=== PATIENT | female | born 1955 | race Caucasian/White ===

== ENCOUNTER 2018-01-30 08:55 | Outpatient (CLI) | payer MEDICARE ==
--- NOTE | 2018-01-31 09:30 | PET ---
PET SCAN WITH CT ATTENUATION CORRECTION: HISTORY: A 62-year-old female. Thyroid cancer. Enlarged neck lymph node. Lymph node swollen since November 12. COMPARISON: None. TECHNIQUE: PET scan with CT attenuation correction was performed from the base of the brain to the proximal thig h, following the intravenous administration of 11.09 millicuries of F18 fluorodeoxyglucose. FINDINGS: HEAD/NECK: There is a mildly enlarged left level II lymph node with a maximum SUV of 2.5, which is a t the upper limits of normal. There are no additional enlarged lymph nodes on the CT used for attenu ation correction. There are no abnormal areas of FDG localization. CHEST: No abnormal FDG localization. ABDOMEN/PELVIS: No abnormal FDG localization. OSSEOUS STRUCTURES: No abnormal FDG localization. IMPRESSION: No abnormal fluorodeoxyglucose localization. There is an enlarged left level II lymph node with the maximum standardized uptake value at the upper limits of normal. POS: SVEN
== END 2018-01-30 08:56 | disposition home or self-care (01) ==
LOC: PET 08:55
PROVIDERS: ATTEND Otolaryngology
DX: C73 Malignant neoplasm of thyroid gland (principal)
CPT/HCPCS: 78815; A9552